=== PATIENT | female | born 1985 | race African-American/Black ===

== ENCOUNTER 2020-06-18 00:53 | Inpatient (IN) | payer OTHER ==
[2020-06-18] VITALS (7 sets, daily range): BP systolic 97–133; BP diastolic 56–88
[~2020-06-18] VITALS: Ht 157.5 cm; Wt 65.3 kg
--- NOTE | ~2020-06-18 | EMS ---
[address] [address] EMS Patient Care Report Name: LUIS CARLOS YAN Room #: PRE M.R.#: [id number] Admission: Attend Phys: Discharge: Date of : 87 Report #: [id number] THIS REPORT FOR: //name// Report Transmitted: 06/18/2020 00:46 EMS Care Summary [place], [place]/[facility] Incident [id number] @ 06/18/2020 00:12 Incident Location [facility] [address] [place] [address] Patient LUIS CARLOS YAN Female, 35 Years 1985 Patient Address [address] [place] [address] Patient History None Reported, Patient Allergies No known allergies, Patient Medications None Reported, Chief Complaint Abd pain with N/V Disposition Transported No Lights/Temple Dispatch Reason Sick Person Transported To [facility] Narrative Called for a sick. Upon arrival, P42 on the scene. Pt was DEY x 3 standing at her kitchen table. She c/o of abd pain with N/V. 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 She has had the pain for a couple of days with the vomiting starting today. She was assisted to the ambulance [place] [address] EMS Patient Care Report Name: LUIS CARLOS YAN Room #: PRE ER M.R.#: [id number] Admission: Attend Phys: Discharge: Date of : 87 Report #: [id number] vomited several times. Pt climbed in and sat down w/o incident. Vitals obtained. 18g IV attempted and then obtained. Vitals repeated, D-stick obtained. En route: Zofran given. RR to ER. Arrived: pt taken to ER #9 and moved to their bed w/o incident. Pt care & report to ER staff. Initial Vitals @00:29P: 98,R: 14,BP: 140/93,Pain: 0/10,GCS: 15,Glucose: 358,SpO2: 99,Revised Trauma: 12, @00:27P: 99,R: 14,BP: 131/88,Pain: 0/10,GCS: 15,SpO2: 99,Revised Trauma: 12, Assessments @00:22MENTAL:Person Oriented,Time Oriented,Place Oriented,Event Oriented,SKIN:HEENT:LUNG SOUNDS:General: Vomiting,General: Nausea,Left Upper: Tenderness,Left Lower: Tenderness,Right Upper: Tenderness,Right Lower: Tenderness,ABDOMEN:General: Vomiting,General: Nausea,Left Upper: Tenderness,Left Lower: Tenderness,Right Upper: Tenderness,Right Lower: Tenderness,PELVIS//GI:EXTREMITIES:Left Arm: No Abnormalities,Right Arm: No Abnormalities,Left Leg: No Abnormalities,Right Leg: No Abnormalities,PULSE:Radial: 2+ Normal,NEURO:No Abnormalities, Impression Abdominal Pain Procedures @00:35Saline Lock 8cc (18 ga) Site: Forearm-RightResponse: UnchangedSucceeded@00:46Zofran - 4 Milligrams (mg) - Intravenous (IV)Response: Unchanged@00:22ALS AssessmentResponse: UnchangedSucceeded@00:31Saline Lock cc (18 ga) Site: Forearm-RightResponse: UnchangedFailed@00:25StretcherResponse: Unchanged Timeline 00:09,Call Received 00:09,Dispatch Notified 00:12,Dispatched 00:13,En Route 00:21,On Scene 00:22,At Patient 00:22,ALS Assessment,Response: UnchangedSucceeded, 00:25,Stretcher,Response: Unchanged 00:27,BP: 131/88 M,PULSE: 99,RR: 14 R,SPO2: 99 Ox,ETCO2: ,BG: ,PAIN: 0,GCS: 15, 00:29,BP: 140/93 M,PULSE: 98,RR: 14 R,SPO2: 99 Ox,ETCO2: ,B,PAIN: 0,GCS: 15, 00:31,Saline Lock cc 18 ga Site: Forearm-Right,Response: UnchangedFailed, 00:35,Saline Lock 8cc 18 ga Site: Forearm-Right,Response: UnchangedSucceeded, 00:38,Depart Scene 00:46,Zofran - 4 Milligrams (mg) - Intravenous (IV),Response: Unchanged [facility] [address] [place] [address] EMS Patient Care Report Name: LUIS CARLOS YAN Room #: [facility] M.R.#: [id number] Admission: Attend Phys: Discharge: Date of : 87 Report #: [id number] 00:50,At Destination 01:02,Call Closed Disclaimer [email or web address] Copyright 2020 [employer] This EMS Care Summary contains data elements from the applicable legal record (which may be displayed differently). It is designed to provide pertinent information for the following purposes: continuity of care, clinical quality, and state data reporting. The complete legal record is available to ED staff and administrators of the receiving hospital in [employer] Patient Tracker. All data is provided "as is."
[2020-06-18 01:44] LABS: URINE BILIRUBIN NEGATIVE (Negative); URINE BLOOD NEGATIVE (Negative); URINE CLARITY CLEAR; URINE COLOR YELLOW; URINE GLUCOSE-RANDOM* 3+ (Negative); URINE KETONES NEGATIVE (Negative); URINE LEUKOCYTES-REFLEX NEGATIVE (Negative); URINE NITRITE-REFLEX NEGATIVE (Negative); URINE PROTEIN (DIPSTICK) 1+ (Negative); URINE SPECIFIC GRAVITY >= 1.030 (1.005-1.035); URINE UROBILINOGEN 0.2 E.U./dl (0.2-1.0)
[2020-06-18 01:49] LABS: BACTERIA-REFLEX 1-9 Few /HPF (None Seen); CASTS None Seen /LPF (None Seen); CRYSTALS None Seen /LPF (None Seen); MUCUS 0-3 Light strn/LPF (None Seen); SQUAMOUS 4-10 Moderate /LPF (0-3); URINE RBC 3-10 Few /HPF (0-2); URINE WBC-REFLEX 0-5 Rare /HPF (0-5)
[2020-06-18 01:55] LABS: HEMATOCRIT 36.8 % (37.0-47.0); HEMOGLOBIN 11.9 gm/dL (12.0-15.0); MCHC 32.4 g/dL (28.0-37.0); MCV 92.4 fL (80.0-100.0); PLATELET COUNT 240 thou/uL (150-400); RBC 3.98 mil/uL (4.20-5.00); WBC 23.8 thou/uL (4.0-11.0)
[2020-06-18 01:58] LABS: CALCIUM 8.3 mg/dL (8.5-10.1); POTASSIUM 3.8 mmol/L (3.5-5.1)
[2020-06-18 02:05] LABS: ALBUMIN 4.2 g/dL (3.4-5.0); TOTAL BILIRUBIN 0.4 mg/dL (0.2-1.0); TOTAL PROTEIN 7.5 g/dL (6.4-8.2)
[2020-06-18 03:36] LABS: ABSOLUTE NEUTROPHILS 23.1 thou/uL (1.4-8.2); PLATELET ESTIMATE NORMAL
--- NOTE | 2020-06-18 07:36 | NUR ---
PATIENT ARRIVED TO 4S FROM ED AT 0630 VIA CART ACCOMPANIED BY ED PERSONEL. PATIENT ALERT AND ORIENTED X4.
[2020-06-18 11:23] LABS: AMP/METHAMP Negative (Negative); BARBITURATES Negative (Negative); BENZODIAZEPINES Negative (Negative); COCAINE Negative (Negative); METHADONE Negative (Negative); OPIATES Negative (Negative); PCP Negative (Negative)
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
--- NOTE | 2020-06-18 16:14 | NUR ---
ASSUMED PT CARE AROUND 1330 UPON TRANSFER FROM TO 4W.. PT COMPLAINS OF GENERALIZED ABDOMINAL PAIN, THAT RESPONDS WELL TO MEDS GIVEN PER EMAR. IV IS PATENT, MEDS INFUSING WELL. PT AMBULATORY TO THE BATHROOM WITH MINIMAL ASSIST. CALLS APPROPRIATELY WHEN NEEDED. REMAINS NPO.ON TELEMETRY.
[2020-06-19 05:59] LABS: BASOPHILS 0.3 % (0.0-2.0); HEMATOCRIT 34.6 % (37.0-47.0); HEMOGLOBIN 11.5 gm/dL (12.0-15.0); LYMPHOCYTES 11.2 % (24.0-44.0); MCHC 33.2 g/dL (28.0-37.0); MCV 93.3 fL (80.0-100.0); MONOCYTES 1.3 % (1.0-8.0); PLATELET COUNT 166 thou/uL (150-400); POLYS 87.2 % (36.0-66.0); RBC 3.71 mil/uL (4.20-5.00); RDW 13.2 % (10.5-14.5)
[2020-06-19 06:09] LABS: WBC 4.6 thou/uL (4.0-11.0)
[2020-06-19 06:35] LABS: CALCIUM 8.2 mg/dL (8.5-10.1); CREATININE 0.8 mg/dL (0.6-1.0); MAGNESIUM 1.7 mg/dL (1.8-2.4); POTASSIUM 3.8 mmol/L (3.5-5.1)
[2020-06-19 08:55] VITALS: BP 132/68
--- NOTE | 2020-06-19 09:24 | NUR ---
ASSUME CARE 1900. PT/VITALS STABLE. INTERMITTENT ABDO PAIN NOTED WITH MODERATE RELIEF FROM FENTANYL. ASSESSMENT CHARTED. PROGRESING WELL WITH POC. PLAN IS FOR PT TO HAVE ABDO CT WITH CONTRAST TODAY. NO DISTRESS NOTED THROUGH THE NIGHT. WILL CONTINUE TO MONITOR AND FOLLOW WITH POC
--- NOTE | 2020-06-19 09:39 | 2DMMODE ---
[facility] [address] [place] [address] 2 D/M-MODE ECHOCARDIOGRAM Name: LAURO YAN Room #: 455-P ADM IN M.R.#: [id number] Admission: 06/18/20 Attend Phys: Junaid Leon MD Discharge: Date of : 87 Report #: [id number] THIS REPORT FOR: cc: NO FAMILY PHYSICIAN or PCP NO FAMILY PHYSICIAN or PCP Kamran Muro MD [facility] ~ APPROVED REPORT Study performed: 06/19/2020 08:33:41 EXAM: Comprehensive 2D, Doppler, and color-flow Echocardiogram Patient Location: In-Patient Room #: 455 Status: routine BSA: 1.66 HR: 80 bpm BP: 97/56 mmHg Rhythm: NSR Other Information Study Quality: Good Indications Syncope 2D Dimensions RVDd: 27.11 mm IVSd: 8.11 (7-11mm) LVOT Diam: 19.75 (18-24mm) LVDd: 35.71 mm PWd: 8.20 (7-11mm) Ascending Ao: 24.77 (22-36mm) LVDs: 24.21 (25-40mm) Left Atrium: 34.65 (27-40mm) Aortic Root: 25.58 mm IVC: 16.00 mm Volumes Left Atrial Volume (Systole) Single Plane 4CH: 31.44 mL Single Plane 2CH: 73.66 mL LA ESV Index: 34.00 mL/m2 Aortic Valve AoV Peak Omid.: 1.38 m/s AO Peak Gr.: 9.37 mmHg LVOT Max P.23 mmHg LVOT Max V: 1.03 m/s OTIS Vmax: 2.29 cm2 [facility] [address] [place] [address] 2 D/M-MODE ECHOCARDIOGRAM Name: LAURO YAN Room #: 455-P [facility] IN .R.#: [id number] Admission: 06/18/20 Attend Phys: Junaid Leon MD Discharge: Date of : 87 Report #: [id number] Mitral Valve E/A Ratio: 1.2 MV Decel. Time: 2254.76 ms MV E Max Omid.: 0.65 m/s MV A Omid.: 0.56 m/s MV PHT: 653.88 ms IVRT: 64.59 ms Pulmonary Valve PV Peak Omid.: 0.87 m/s PV Peak Gr.: 3.04 mmHg VA End Vmax: 1.08 m/s Pulmonary Vein P Vein S: 0.97 m/s P Vein A: 0.21 m/s P Vein D: 0.56 m/s P Vein A Dur.: 87.7 msec P Vein S/D Ratio: 1.73 Tricuspid Valve TR Peak Omid.: 2.60 m/s RAP Estimate: 7.00 mmHg TR Peak Gr.: 26.94 mmHg PA Pressure: 33.00 mmHg Left Ventricle The left ventricle is normal size. There is normal LV segmental wall motion. There is normal left ventricular wall thickness. Left ventricular systolic function is normal. The left ventricular ejection fraction is within the normal range. 60% Right Ventricle The right ventricle is normal size. The right ventricular systolic function is normal. Atria The left atrium size is normal. The right atrium size is normal. Aortic Valve The aortic valve is normal in structure. No aortic regurgitation is present. There is no aortic valvular stenosis. Mitral Valve The mitral valve is normal in structure. Trace mitral regurgitation. No evidence of mitral valve stenosis. Tricuspid Valve [facility] [address] [address] 2 D/M-MODE ECHOCARDIOGRAM Name: LUARO YAN Room #: 455-P ADM IN .R.#: [id number] Admission: 06/18/20 Attend Phys: Junaid Leon MD Discharge: Date of : 87 Report #: [id number] The tricuspid valve is normal in structure. Mild tricuspid regurgitation. Pulmonic Valve The pulmonary valve is normal in structure. Mild pulmonic regurgitation. Great Vessels The aortic root is normal in size. IVC is normal in size and collapses >50% with inspiration. Pericardium There is no pericardial effusion. <Conclusion> Normal left ventricular size/function Ejection fraction 60-65% Normal right ventricular size/function Normal atrial size Color-flow Doppler study was performed of the aortic/mitral/tricuspid/pulmonary valve Normal aortic/mitral valve structure and function Mild tricuspid valve insufficiency Pulmonary systolic pressure estimated 33 mmHg No pericardial effusion <ELECTRONICALLY SIGNED> By: Kamran Muro MD, FACC 06/19/20937 7 7 Kamran Muro MD, FACC /INF
[2020-06-19] MEDS ORDERED: METRONIDAZOLE500 M4 PO (12:29)
[2020-06-19] MEDS ORDERED: CIPRO500 M1 PO (12:29)
[2020-06-19] MEDS ORDERED: PEPCID20 MG PO (12:29)
[2020-06-19] MEDS ORDERED: ACETAMINOPHEN325 M1 PO (12:29)
[2020-06-19 15:28] VITALS: BP 132/68
--- NOTE | 2020-06-19 15:28 | NUR ---
CARE TEAM INDICATED THAT PT IS MEDIALLY STABLE TO DISCHARGE HOME THIS DAY. PT IS TO DC HOME TO SELF CARE. NO OTHER CM INTERENTION INDICATED. CASE CLOSED.
[2020-06-19 15:59] VITALS: BP 142/90
--- NOTE | 2020-06-19 20:22 | NUR ---
Received awake on bed. Due medications given as prescribed. On nothing per orem, pt informed and aware. On telemetry; no complains and signs of chest pain, crushing sensation and heaviness. Assisted in ADLs. Vital signs stable. Continent of bowel and bladder, able to go to the toilet independently. With NS at 100cc/hr infusing well at R FA; on IV antibiotics. Pt brought down for CT scan with contrast, with allergies noted- pre meds given as prescribed; CT scan staff called and said they did not push thru with procedure- pt had hives; Dr Leon informed re: this. Pt back to room safely. Pt seen and examined by Dr Leon and Dr Gutierrez; ok for discharge after trial feeding of clear liquid and full liquids- tolerated well, with mild nausea noted- both physician aware. Discharge orders made. Discharge instructions, follow up schedule given and instructed. Discharge forms signed. Iv discontinued. Telemetry stopped, monitor returned. Pt fetched by her relative, brought out of the unit via wheelchair. Patient discharged.
== END 2020-06-19 16:00 | disposition home or self-care (01) | DRG 392 ==
LOC: ER 00:53 → 4W 05:38 → 4S 05:38 → EROBS 05:38 → 4S 06:21 → 4W 12:50
PROVIDERS: Emergency Medicine; Nurse Practitioner; Nurse Practitioner Family; ADMIT Internal Medicine; ATTEND Internal Medicine
DX: K52.9 Noninfective gastroenteritis and colitis, unspecified (principal); N39.0 Urinary tract infection, site not specified; D72.829 Elevated white blood cell count, unspecified; Z88.6 Allergy status to analgesic agent; Z91.041 Radiographic dye allergy status
CPT/HCPCS: 10045; 10047

== ENCOUNTER → 2020-07-01 | Outpatient (CLI) | payer OTHER ==
[~2020-07-01] MED LIST: ACETAMINOPHEN325 M1 PO; CIPRO500 M1 PO; METRONIDAZOLE500 M4 PO; PEPCID20 MG PO; PROTONIX40 M2 PO
== END ==
LOC: ULTRA 09:03
PROVIDERS: ATTEND Surgery
DX: K76.89 Other specified diseases of liver (principal)

== ENCOUNTER → 2020-07-01 | Outpatient (CLI) | payer OTHER | LOC: LAB 08:38 | PROVIDERS: ATTEND Surgery | DX: Z01.812 Encounter for preprocedural laboratory examination (principal); Z20.822 Contact with and (suspected) exposure to COVID-19 ==